=== PATIENT | female | born 1965 | race Caucasian/White ===

== ENCOUNTER 2020-06-23 16:14 | Inpatient (IN) | payer MEDICAID, OTHER ==
[~2020-06-23] VITALS: Ht 165.1 cm; Wt 73.0 kg
[2020-06-23 17:09] LABS: Basophils # (auto) 0 10 ^3/uL (0-0.2); Basophils % (auto) 0.2 % (0.0-2.0); Eosinophils # (auto) 0 10 ^3/uL (0-0.8); Lymphocytes # (auto) 0.9 10 ^3/uL (0.4-5.4); Monocytes # (auto) 0.5 10 ^3/uL (0-1.3); Neutrophils # (auto) 6.6 10 ^3/uL (1.6-8.6)
[2020-06-23 17:11] LABS: Eosinophils % (auto) 0.2 % (0.0-7.0); Hematocrit 43.8 % (36.0-46.0); Hemoglobin 15.2 g/dL (12.2-16.2); Lymphocytes % (auto) 11.1 % (10.0-50.0); Mean Corpuscular Hemoglobin 34.2 pg (28.0-32.0); Mean Corpuscular Hgb Conc. 34.8 g/dL (32.0-36.0); Mean Corpuscular Volume 98.5 fL (80.0-100.0); Monocytes % (auto) 5.9 % (0.0-12.0); Neutrophils % (auto) 82.6 % (37.0-80.0); Platelet Count (auto) 136 10^3/uL (140-450); Red Blood Cells 4.45 10^6/uL (4.0-5.20)
[2020-06-23 17:23] LABS: Albumin 3.7 g/dL (3.4-5.0); Anion Gap 9 (5-15); Blood Urea Nitrogen 17 mg/dL (7-18); Calcium 10.1 mg/dL (8.5-10.1); Carbon Dioxide 24 mmol/L (21-32); Chloride 103 mmol/L (98-107); Glucose 357 mg/dL (74-106); Magnesium 1.8 mg/dL (1.6-2.6); Potassium 4.2 mmol/L (3.5-5.1); Sodium 136 mmol/L (136-145)
[2020-06-23 17:27] LABS: Lactic Acid w/Reflex 2.9 mmol/L (0.4-2.0)
[2020-06-23 17:28] LABS: Alanine Aminotransferase 98 U/L (13-56); Alkaline Phosphatase 71 U/L (45-117); Aspartate Aminotransferase 41 U/L (15-37); BUN/Creatinine Ratio 18.3; Bilirubin, Total 0.8 mg/dL (0.2-1.0); GFR African American 80 mL/min; GFR Non-African American 66 mL/min; Total Protein 7.7 g/dL (6.4-8.2)
[2020-06-23 17:30] LABS: INR 1.01 (0.9-1.15); Partial Thromboplastin Time 23.4 sec (23.0-31.2)
[2020-06-23] MEDS ORDERED: SODIUM CHLORIDE 0.9% 1,000 ML IV ONE ×2 (18:00)
[2020-06-23] MEDS ORDERED: PIPERACILLIN-TAZOB 3.375GM 100 ML IV ONE (18:00)
[2020-06-23] MEDS ORDERED: IOHEXOL 350 MG/ML 100ML IJ ONE (18:42)
[2020-06-23] MEDS ORDERED: KETOROLAC TROMETH 30 MG/ML 1ML VIAL IV ONE (19:45)
[2020-06-24] MEDS ORDERED: NITROGLYCERIN 0.4 MG SL TAB SL PRN (03:45)
[2020-06-24] MEDS ORDERED: HYDROcodone-ACET 5/325MG TAB PO PRN (03:45)
[2020-06-24] MEDS ORDERED: MORPHINE SULF INJ 2 MG/ML SYRINGE 1ML IV PRN (03:45)
[2020-06-24] MEDS ORDERED: ACETAMINOPHEN 325 MG TAB PO PRN (03:45)
[2020-06-24] MEDS ORDERED: DOCUSATE SOD 100 MG CAP PO PRN (03:45)
[2020-06-24] MEDS ORDERED: DEXTROSE (50%) 50ML SYRG IV PRN (03:45)
[2020-06-24] MEDS ORDERED: ONDANSETRON HCL 4 MG/2 ML VIAL IV PRN (03:45)
[2020-06-24 04:17] LABS: Basophils # (auto) 0 10 ^3/uL (0-0.2); Basophils % (auto) 0.3 % (0.0-2.0); Eosinophils # (auto) 0.1 10 ^3/uL (0-0.8); Eosinophils % (auto) 1.6 % (0.0-7.0); Hematocrit 39.9 % (36.0-46.0); Hemoglobin 13.7 g/dL (12.2-16.2); Lymphocytes # (auto) 1.8 10 ^3/uL (0.4-5.4); Lymphocytes % (auto) 32.6 % (10.0-50.0); Mean Corpuscular Hemoglobin 33.9 pg (28.0-32.0); Mean Corpuscular Hgb Conc. 34.4 g/dL (32.0-36.0); Mean Corpuscular Volume 98.7 fL (80.0-100.0); Monocytes # (auto) 0.5 10 ^3/uL (0-1.3); Neutrophils # (auto) 3.1 10 ^3/uL (1.6-8.6); Neutrophils % (auto) 56.5 % (37.0-80.0); Nucleated Red Blood Cells % 0.1 %; Platelet Count (auto) 112 10^3/uL (140-450); Red Blood Cells 4.04 10^6/uL (4.0-5.20); Red Cell Distribution Width 12.8 % (11.8-14.3); White Blood Cell 5.6 10^3/uL (4.4-10.8)
[2020-06-24] MEDS: SODIUM CHLORIDE 0.9% 1,000 ML IV SCH ×2 (04:29→09:18)
[2020-06-24 04:34] LABS: BUN/Creatinine Ratio 17.1; Calcium 8.4 mg/dL (8.5-10.1); Potassium 3.7 mmol/L (3.5-5.1)
[2020-06-24 04:37] LABS: Total Protein 6.2 g/dL (6.4-8.2)
[2020-06-24] MEDS: ACCU-CHEK COMFORT CURVE STRIP VI SCH ×2 (07:28→11:38)
[2020-06-24] MEDS: InsuLIN REG 1unit/0.01ml Soln (100units/ml) SC SCH ×2 (07:29→11:40)
[2020-06-24] MEDS ORDERED: CHOL20007 PO ×2 (08:03→13:17)
[2020-06-24] MEDS ORDERED: ATO40T PO ×2 (08:03→13:18)
[2020-06-24] MEDS ORDERED: ASPI325T4 PO ×2 (08:03→13:18)
[2020-06-24] MEDS ORDERED: FAMO20TA10 PO ×2 (08:03→13:17)
[2020-06-24 08:54] VITALS: BP 122/81
[2020-06-24] MEDS ORDERED: cefTRIAXone 1GM/50ML D5W 50 ML IV SCH (09:00)
[2020-06-24] MEDS ORDERED: FAMOTIDINE 20 MG TAB PO SCH (10:00)
[2020-06-24] MEDS ORDERED: MULTIPLE VITAMIN TAB PO SCH (10:00)
[2020-06-24] MEDS ORDERED: ENOXAPARIN SOD 40 MG/0.4 ML SYRINGE SC SCH (10:00)
[2020-06-24] MEDS ORDERED: ZINC SULFATE 220mg CAP or TAB PO SCH (10:00)
[2020-06-24] MEDS ORDERED: ASCORBIC ACID 500 MG TAB PO SCH (10:00)
[2020-06-24] MEDS ORDERED: ASPirin 81 mg TAB PO SCH (10:00)
[2020-06-24 12:38] VITALS: BP 115/77
[2020-06-24] MEDS ORDERED: BLOO1KIT22 XX (13:18)
[2020-06-24] MEDS ORDERED: ASCO-56 PO (13:18)
[2020-06-24] MEDS ORDERED: ZINC100T5 PO (13:18)
[2020-06-24] MEDS ORDERED: AZIT500T PO (13:18)
[2020-06-24] MEDS ORDERED: METF-370 PO (13:18)
[2020-06-24 13:40] LABS: Urine Bacteria NONE SEEN /hpf (None Seen); Urine Blood Negative /uL (Negative); Urine Specific Gravity 1.032 (1.001-1.035); Urine WBC 1 /hpf (0 - 5)
[2020-06-24 15:25] VITALS: BP 115/77
[2020-06-24] MEDS ORDERED: ATORVASTATIN 20 MG TAB PO SCH (22:00)
[2020-06-24] MEDS ORDERED: InsuLIN REG 1unit/0.01ml Soln (100units/ml) SC SCH (22:00)
== END 2020-06-24 17:20 | disposition home or self-care (01) | DRG 720 ==
LOC: EDBD 16:14 → ER 16:14 → TELE 16:15 → TELE-EAST 06-24 07:16
PROVIDERS: ADMIT Nurse Practitioner Family; ATTEND Nurse Practitioner Family
DX: A41.89 Other specified sepsis (principal); U07.1 COVID-19; K21.00 Gastro-esophageal reflux disease with esophagitis, without bleeding; E78.5 Hyperlipidemia, unspecified; F41.9 Anxiety disorder, unspecified; I10 Essential (primary) hypertension; I25.2 Old myocardial infarction; J45.909 Unspecified asthma, uncomplicated; R94.6 Abnormal results of thyroid function studies; J98.11 Atelectasis; E11.9 Type 2 diabetes mellitus without complications; Z88.5 Allergy status to narcotic agent; Z88.2 Allergy status to sulfonamides; Z88.8 Allergy status to other drugs, medicaments and biological substances
CPT/HCPCS: 36415; 71045; 71260; 74177; 76705; 80053; 81001; 82962; 83036; 83605; 83735; 83880; 84443; 84484; 85025; 85379; 85610; 85730; 87040; 87086; 87426; 96361; 96365; 96366; G0378; J0696; J1815; J1885; J2543